=== PATIENT | male | born 1965 | race Caucasian/White ===

== ENCOUNTER → 2021-03-12 | Outpatient (CLI) | payer BC ==
[~2021-03-12] MED LIST: ASPIRIN81 MG PO; BUSPAR 10MG10 MG PO; BYSTOLIC10 MG PO; BYSTOLIC5 MG PO; CLARITIN10 MG PO; DICYCLOMINE HCL20 MG PO; LIPITOR TAB 1010 MG PO; LISINOPRIL10 MG PO; NITROSTAT 0.40.4 MG SL; PROAIR HFA8.5 GM INH; PROTONIX 40 MG40 M1 PO; RANEXA500 MG PO; SINGULAIR10 MG PO; SUDAFED 12-HOU120 MG PO; TESTOSTERONE INJ; VITAMIN B-1000 MCG/M IM; VITAMIN D35000 UNI1 PO; VITAMIN D350000 UNIT PO; XYZAL5 MG PO
== END ==
LOC: SLEEP 14:44
DX: G47.10 Hypersomnia, unspecified (principal); G47.61 Periodic limb movement disorder
CPT/HCPCS: 95811

== ENCOUNTER → 2021-12-01 | Outpatient (CLI) | payer BC | LOC: LAB 08:44 | DX: Z20.822 Contact with and (suspected) exposure to COVID-19 (principal) | CPT/HCPCS: U0003 ==

== ENCOUNTER → 2021-12-03 | Outpatient (CLI) | payer BC | LOC: MRI 09:00 → CATH 09:51 | DX: I10 Essential (primary) hypertension (principal); R55 Syncope and collapse ==

== ENCOUNTER → 2021-12-21 | Outpatient (CLI) | payer BC | LOC: HEART 5 07:48 | DX: R07.9 Chest pain, unspecified (principal); R55 Syncope and collapse; I08.8 Other rheumatic multiple valve diseases | CPT/HCPCS: 78452; 93306; A9502 ==

== ENCOUNTER → 2022-01-20 | Outpatient (CLI) | payer BC | LOC: HEART 5 08:57 | DX: R07.9 Chest pain, unspecified (principal); R55 Syncope and collapse ==

== ENCOUNTER → 2022-04-09 | Outpatient (CLI) | payer BC | LOC: KOH-I 08:45 | DX: M79.671 Pain in right foot (principal); M79.672 Pain in left foot; M54.16 Radiculopathy, lumbar region; M47.816 Spondylosis without myelopathy or radiculopathy, lumbar region; M21.962 Unspecified acquired deformity of left lower leg; M21.961 Unspecified acquired deformity of right lower leg | CPT/HCPCS: 72100; 73630 ==